=== PATIENT | female | born 1965 | race African-American/Black ===

== ENCOUNTER → 2024-06-17 | Outpatient (CLI) | payer OTHER ==
[2024-06-17 19:10] LABS: Microalb/Creat Ratio UR, Rand 7.847 mg/g (0.000-30.000); Microalbumin, Random Urine 11.3 mg/L (0.000-20.000)
== END ==
LOC: LAB SHORT 13:45 → LAB 13:45
PROVIDERS: Family Medicine
DX: E11.8 Type 2 diabetes mellitus with unspecified complications (principal)
CPT/HCPCS: 82043; 82570